=== PATIENT | male | born 1960 | race Caucasian/White ===

== ENCOUNTER 2022-03-28 13:37 | Emergency (ER) | payer BC ==
[2022-03-28 13:50] VITALS: BP 122/73; PULSE 64; O2SAT 96
[2022-03-28] MEDS ORDERED: XYLOCAINE 1% HCL 20 ML MDV IJ ONE (13:51)
[2022-03-28] MEDS ORDERED: BACIGUENT PACKET TP ONE (13:51)
[2022-03-28] MEDS ORDERED: XYLOCAINE 1% HCL 20 ML MDV ONE (13:52)
[2022-03-28] MEDS ORDERED: BACIGUENT PACKET ONE (13:52)
[2022-03-28] MEDS ORDERED: Adacel Vial IM ONE ×2 (13:53→13:56)
--- NOTE | 2022-03-28 14:59 | ERPHSYRPT ---
- History of Present Illness Time Seen by Provider: 03/28/22 13:53 Source: patient Exam Limitations: no limitations Patient Subjective Stated Complaint: pt was using a table saw and cut his left thumb directly in the center straight up on the anterior side and up over the top of the nail Triage Nursing Assessment: Pt brought to the ER by his , akhil wnl, denies pain, 6cm laceration to the left thumb, well approximated, denies any other inj uries, pulses normal Physician History: 61 years old right-handed dominant male presented in the ER with chief complaint of laceration to the left distal thumb pulp while he was working with a table saw at home prior to arrival. Moderate pain initially but now minimal pain. There was bleeding initially but stopped with applying pressure. Able to move thumb at distal interphalangeal joint. No numbness at the distal end. No injury anywhere else. Unsure about tetanus status. Occurred: just prior to arrival Method of Injury: incised Quality: sharpness Severity of Pain-Max: moderate Severity of Pain-Current: mild Extremities Pain Location: thumb: left Modifying Factors: Worsens With: movement Associated Symptoms: none Allergies/Adverse Reactions: No Known Drug Allergies Allergy (Verified 03/28/22 13:58) Home Medications: Atorvastatin Calcium 20 mg PO DAILY 03/28/22 [History] Citalopram Hydrobromide 20 mg* [ceLEXa 20 MG] 20 mg PO DAILY 03/28/22 [History] Hx Tetanus, Diphtheria Vaccination/Date Given: No Hx Influenza Vaccination/Date Given: No Travel Risk - International Travel Have you traveled outside of the country in past 3 weeks: No - Coronavirus Screening Are you exhibiting any of the following symptoms?: No Close contact with a COVID-19 positive Pt in past 14-21 Days: No - Vaccine Status Have you recieved a Covid-19 vaccination: Yes Parking Regulation Enforcement Officer: [email or web address] - Review of Systems Constitutional: No Symptoms Ears, Nose, & Throat: No Symptoms Respiratory: No Symptoms Cardiac: No Symptoms Abdominal/Gastrointestinal: No Symptoms Musculoskeletal: Injury Skin: Skin Lesions Neurological: No Symptoms Endocrine: No Symptoms - Past Medical History Pertinent Past Medical History: Yes Psycho-Social History: Anxiety - Past Surgical History Past Surgical History: Yes Gastrointestinal: Appendectomy - Social History Smoking Status: Never smoker Exposure to second hand smoke: No Drug Use: none Patient Lives Alone: No - Nursing Vital Signs Nursing Vital Signs: Initial Vital Signs Temperature 97.8 F 03/28/22 13:49 Pulse Rate 64 03/28/22 13:49 Respiratory Rate 18 03/28/22 13:49 Blood Pressure 122/73 03/28/22 13:49 O2 Sat by Pulse Oximetry 96 03/28/22 13:49 Pain Scale Pain Intensity 0 - Physical Exam General Appearance: no apparent distress, alert Neck Exam: normal inspection, full range of motion Cardiovascular/Respiratory Exam: normal breath sounds, regular rate/rhythm Back Exam: normal inspection, normal range of motion Shoulder Exam: normal inspection Elbow/Forearm Exam: normal inspection Wrist Exam: normal inspection, non-tender, no evidence of injury, normal ROM Hand Exam: normal ROM, laceration (Laceration from left thumb distal interphalangeal joint all the way to the tip with some involvement of nailbed as well. Minimal oozing. Minimal tenderness. Intact range of motion at the DIP. ), nail injury (Third and fourth digit with intact range of motion at distal interphalangeal joints.), soft tissue tenderness Neuro/Tendon Exam: normal sensation, normal motor functions, normal tendon functions Mental Status Exam: alert, oriented x 3 Skin Exam: normal color SpO2 Interpretation: normal SpO2: 96 O2 Delivery: Room Air Procedures - Laceration/Wound Repair Left Distal Volar Finger Time of Procedure: 14:57 Wound Location: Left Wound Length (cm): 5 Wound's Depth, Shape: into muscle Wound Explored: clean Irrigated: Yes Hibiclens Prep: Yes Anesthesia: 1% Lidocaine Volume Anesthetic (ccs): 6 Wound Repaired With: sutures Suture Size/Type: 4-0 Number of Sutures: 10 Layer Closure?: No Sterile Dressing Applied?: Yes Splint Applied?: No Progress: 03/28/22 14:58 Patient was vasovagal near syncope initially which improved and tolerated procedure very well. Ordered Tests: Active Orders 24 hr Category Date Time Status Wound Care STAT Care 03/28/22 13:50 Completed HAND (MINIMUM 3 VIEWS) Stat Exams 03/28/22 14:35 Completed Medication Summary Discontinued Medications Generic Name Dose Route Start Last Admin Trade Name Freq PRN Reason Stop Dose Admin Hydrocodone Bitart/Acetaminophen 2 tab 03/28/22 15:30 03/28/22 15:33 Hydrocodone/Apap 5/325 1 Tab Tablet PO 03/28/22 15:31 2 tab SENT HOME W/ PATIENT ONE Administration Hydrocodone Bitart/Acetaminophen Confirm 03/28/22 15:32 Hydrocodone/Apap 5/325 1 Tab Tablet Administered 03/28/22 15:33 Dose 2 tab .ROUTE .STK-MED ONE Bacitracin Zinc 0.9 each 03/28/22 13:51 03/28/22 13:54 Bacitracin Packet 1 Each Pckt TP 03/28/22 13:52 0.9 each STAT ONE Administration Bacitracin Zinc Confirm 03/28/22 13:52 Bacitracin Packet 1 Each Pckt Administered 03/28/22 13:53 Dose 1 each .ROUTE .STK-MED ONE Cephalexin HCl 500 mg 03/28/22 15:01 03/28/22 15:21 Cephalexin Mh500 Mg Capsule PO 03/28/22 15:02 500 mg STAT ONE Administration Cephalexin HCl Confirm 03/28/22 15:20 Cephalexin Mh500 Mg Capsule Administered 03/28/22 15:21 Dose 500 mg .ROUTE .STK-MED ONE Diphtheria/Tetanus/Acell Pertussis 0.5 ml 03/28/22 13:53 03/28/22 13:58 Tdap --Diph,Pertuss(Acell),Tet Vac/Pf 0.5 Ml Vial IM 03/28/22 13:54 0.5 ml .ONCE ONE Administration Diphtheria/Tetanus/Acell Pertussis Confirm 03/28/22 13:56 Tdap --Diph,Pertuss(Acell),Tet Vac/Pf 0.5 Ml Vial Administered 03/28/22 13:57 Dose 0.5 ml IM .STK-MED ONE Lidocaine HCl 10 ml 03/28/22 13:51 03/28/22 13:53 Lidocaine Hcl 1% 20 Ml Mdv 20 Ml Ml IJ 03/28/22 13:52 10 ml STAT ONE Administration Lidocaine HCl Confirm 03/28/22 13:52 Lidocaine Hcl 1% 20 Ml Mdv 20 Ml Ml Administered 03/28/22 13:53 Dose 10 ml .ROUTE .STK-MED ONE - Progress Progress: improved Progress Note: 03/28/22 14:58 Laceration is repaired, tetanus updated. Put on antibiotics. Does have fracture distal phalanx. Outpatient hand surgery follow-up recommended. Discussed signs symptoms of worsening needing return to ER which he seems understanding. 03/28/22 14:59 Counseled pt/family regarding: diagnosis, need for follow-up, rad results - Departure Departure Disposition: Home Clinical Impression: Thumb fracture Laceration of thumb with damage to nail Qualifiers: Encounter type: initial encounter Foreign body presence: without foreign body Laterality: left Qualified Code(s): S61.112A - Laceration without foreign body of left thumb with damage to nail, initial encounter Condition: Stable Critical Care Time: No Referrals: ALLY NIELSEN MD [Primary Care Provider] - Follow Up with PCP/3 days LUCY RIVERA MD [NON-STAFF PHY W/O PRIVILEGES] - Follow up/PCP as directed (Call in 2 days for reevaluation) Instructions: Laceration Repair With Stitches (DC) Additional Instructions: Follow-up with primary care/hand surgery for reevaluation. Keep it elevated. Tylenol/ibuprofen as needed for pain. Follow signs for infection and return to ER for any worsening of pain swelling redness discharge, difficulty movements, bluish discoloration etc. Prescriptions: Ibuprofen 600 mg PO Q6HPRN PRN 10 Days #20 tablet PRN Reason: Pain Cephalexin Mh 500 mg [Keflex 500 mg] 500 mg PO TID #21 cap
[2022-03-28] MEDS ORDERED: KEFLEX 500 MG PO ONE (15:01)
[2022-03-28] MEDS ORDERED: KEFLEX 500 MG ONE (15:20)
[2022-03-28] MEDS ORDERED: NORCO 5/325 MG PO ONE (15:30)
[2022-03-28] MEDS ORDERED: NORCO 5/325 MG ONE (15:32)
--- NOTE | 2022-03-28 18:10 | XRAY ---
Indication: 1st/3rd/4th finger laceration. Comparison: None 3 view left hand demonstrates nondisplaced tuft fractures 1st and lesser degree 3rd phalanges with soft tissue swelling/laceration. Mild osteopenia and mild 1st metacarpal multangular degenerative changes. No other bony, articular, or soft tissue abnormalities.
== END 2022-03-28 15:37 | disposition home or self-care (01) ==
LOC: ED 13:37
DX: S61.112A Laceration without foreign body of left thumb with damage to nail, initial encounter (principal); S62.522A Displaced fracture of distal phalanx of left thumb, initial encounter for closed fracture; W27.0XXA Contact with workbench tool, initial encounter; Z79.899 Other long term (current) drug therapy
CPT/HCPCS: 12002; 73130; 90471; 90715; 96372; 99283; A9270-GY